=== PATIENT | female | born 1985 | race Hispanic/Latino ===

== ENCOUNTER 2017-11-17 10:28 | Emergency (ER) | payer SELFPAY ==
[~2017-11-17] VITALS: Ht 154.9 cm; Wt 100.2 kg
[2017-11-17 10:52] VITALS: BP 146/82
[2017-11-17] MEDS ORDERED: IBUPROFEN400 MG PO (10:52)
== END 2017-11-17 11:01 | disposition home or self-care (01) ==
LOC: FSED 10:28
DX: S63.622A Sprain of interphalangeal joint of left thumb, initial encounter (principal); X50.1XXA Overexertion from prolonged static or awkward postures, initial encounter; Y92.008 Other place in unspecified non-institutional (private) residence as the place of occurrence of the external cause; F17.210 Nicotine dependence, cigarettes, uncomplicated
CPT/HCPCS: 99283